=== PATIENT | male | born 1960 | race African-American/Black ===

== ENCOUNTER 2019-07-18 21:06 | Emergency (ER) | payer MEDICAID ==
[~2019-07-18] VITALS: Ht 172.7 cm; Wt 88.0 kg
[2019-07-19] MEDS ORDERED: CLONIDINE 0.1MG TABLET PO ONE (01:15)
[2019-07-19 02:53] LABS: CHLORIDE 110 mEq/L (98-107)
[2019-07-19 02:54] LABS: BASOPHILS % 1.6 % (0.0-2.0); EOSINOPHILS % 2.8 % (0.0-5.0); HEMATOCRIT. 43.8 % (42.0-52.0); HEMOGLOBIN. 14.4 g/dL (14.0-18.0); LYMPHOCYTES % 24.7 % (20.0-50.0); MEAN CORPUSCULAR HEMOGLOBIN 29.7 pg (28.0-32.0); MEAN CORPUSCULAR VOLUME 90.5 fL (80.0-94.0); MEAN PLATELET VOLUME 9.5 fl (7.4-10.4); MONOCYTES % 11.3 % (2.0-8.0); NEUTROPHILS % 59.6 % (40.0-76.0); PLATELET 201 x1000/uL (130-400); RED BLOOD CELL COUNT 4.84 mill/uL (4.7-6.1); RED CELL DISTRIBUTION WIDTH 14.9 % (11.6-14.6)
[2019-07-19] MEDS ORDERED: IPRATROPIUM/ALBUTEROL 0.5-3(2.5)MG/3ML NEB HHN ONE ×2 (03:00→04:00)
[2019-07-19] MEDS ORDERED: GUAIFENESIN 200MG/10ML SUGAR FREE UDC PO ONE (03:00)
[2019-07-19] MEDS ORDERED: ACETAMINOPHEN WITH CODEINE 300/30MG TABLET PO ONE (03:00)
[2019-07-19] MEDS ORDERED: CLONIDINE 0.1MG TABLET PO NR (04:15)
[2019-07-19] MEDS ORDERED: AMLODIPINE 5MG TABLET PO NR (05:15)
[2019-07-19 07:49] VITALS: BP 160/76
== END 2019-07-19 07:52 | disposition home or self-care (01) ==
LOC: ER 21:06
DX: I16.0 Hypertensive urgency (principal); J06.9 Acute upper respiratory infection, unspecified; J20.9 Acute bronchitis, unspecified; R94.39 Abnormal result of other cardiovascular function study
CPT/HCPCS: 36415; 71045; 80053; 83880; 84484; 85025; 87804; 93005; 94640; 99284; J7620; Z7610

== ENCOUNTER 2023-10-10 06:19 | Emergency (ER) | payer OTHER ==
[~2023-10-10] VITALS: Ht 180.3 cm; Wt 77.0 kg
[~2023-10-10 06:19] MED LIST: AMLO10TA80 PO; APIX5TAB PO; ASPI-1497 PO; HYDR-3735 PO; HYDR-4001 PO; LISI20TA31 PO
[2023-10-10 06:24] VITALS: O2SAT 98
[2023-10-10 06:52] VITALS: BP 141/89; PULSE 101; RESP 15; TEMP 98
[2023-10-10] MEDS: ACETAMINOPHEN 500MG TABLET PO ONE (06:52)
[2023-10-10] MEDS: KETOROLAC 30MG/ML VIAL IV ONE (06:52)
[2023-10-10] MEDS: LIDOCAINE 5% PATCH TOP STA (06:52)
[2023-10-10] MEDS ORDERED: TOPUD MT (07:51)
== END 2023-10-10 09:19 | disposition home or self-care (01) ==
LOC: ER 06:19
DX: M54.50 Low back pain, unspecified (principal); M19.90 Unspecified osteoarthritis, unspecified site; I10 Essential (primary) hypertension; F19.90 Other psychoactive substance use, unspecified, uncomplicated; Z86.73 Personal history of transient ischemic attack (TIA), and cerebral infarction without residual deficits; W01.0XXA Fall on same level from slipping, tripping and stumbling without subsequent striking against object, initial encounter; Y93.89 Activity, other specified; Y92.89 Other specified places as the place of occurrence of the external cause; Y99.8 Other external cause status
CPT/HCPCS: 99285; 72131; 96374; 72192; J1885

== ENCOUNTER 2023-10-13 20:22 | Emergency (ER) | payer OTHER ==
[~2023-10-13] VITALS: Ht 175.3 cm; Wt 82.0 kg
[~2023-10-13 20:22] MED LIST changes: +TOPUD MT
[2023-10-13 20:23] VITALS: TEMP 98; O2SAT 99
[2023-10-13] MEDS: HYDROCODONE/ACETAMINOPHEN 5/325MG TABLET PO ONE (21:29)
[2023-10-14] MEDS ORDERED: HYDR-4001 MT (01:51)
[2023-10-14] MEDS ORDERED: IBUP-2029 MT (01:51)
[2023-10-14 03:58] VITALS: BP 143/77; PULSE 87; RESP 18
== END 2023-10-14 04:59 | disposition home or self-care (01) ==
LOC: ER 20:22
DX: S60.221A Contusion of right hand, initial encounter (principal); S70.02XA Contusion of left hip, initial encounter; F17.200 Nicotine dependence, unspecified, uncomplicated; I10 Essential (primary) hypertension; Z86.73 Personal history of transient ischemic attack (TIA), and cerebral infarction without residual deficits; W18.39XA Other fall on same level, initial encounter; Y93.89 Activity, other specified; Y92.89 Other specified places as the place of occurrence of the external cause; Y99.8 Other external cause status
CPT/HCPCS: 73110; 73130; 73502; 73552; 99284